=== PATIENT | female | born 1945 | race Caucasian/White ===

== ENCOUNTER → 2016-06-12 | Outpatient (CLI) | payer MEDICARE ==
[~2016-06-12] MED LIST: ARMO90TA PO; BETAFOOD PO; CALC100T2 PO; CARV12.52 PO; CATALYN PO; CATAPLEX D PO; CEPH500C3 PO; CHLOROPHYLL PO; CONGAPLEX PO; DICL75 PO; HYDR-3533 PO; IMMUPLEX PO; METO50TA PO; THYMEX PO; THYROID MED PO; TRIA50 PO; Vit D3 PO; WALKER STANDARD; WHEEMIS3 XX; [UNRECOGNIZED DRUG - CODE] PO; [UNRECOGNIZED DRUG - MIXTURE] PO; [UNRECOGNIZED DRUG - OTHER] PO; [UNRECOGNIZED DRUG - OTHER] PO; [UNRECOGNIZED DRUG - OTHER] PO; [UNRECOGNIZED DRUG - OTHER] PO; [UNRECOGNIZED DRUG - OTHER] PO; [UNRECOGNIZED DRUG - OTHER] PO
--- NOTE | 2016-06-12 15:07 | RADRPT ---
EXAM DATE/TIME: 06/12/2016 14:54 [facility] COMPARISON: No previous studies available for comparison. INDICATIONS : Evaluate for possible right lung biopsy. HISTORY OF PRESENT ILLNESS: Patient had a prior CT from [facility] on 06-05-16. This demonstrates a right lower lobe cav itary mass. A smaller mass is seen in the right lower lobe. Lesion is also noted within the liver lik saida representing a cyst. CONCLUSION: 1. Right lower lobe mass. Recommend PET/CT scan to demonstrate areas of uptake within the mass for bi opsy planning as there is a large cavitary component. This will help to get adequate tissue during sa mpling. 2. The lesion in the liver is likely related to a hepatic cyst. PET/CT will also confirm. Byron Mckenzie MD on June 12, 2016 at 15:01 Board Certified Radiologist. This report was verified electronically.
== END ==
LOC: HRAD 14:52
PROVIDERS: ATTEND Family Medicine
DX: R91.8 Other nonspecific abnormal finding of lung field (principal)

== ENCOUNTER 2016-07-02 07:02 | Day surgery (SDC) | payer MEDICARE ==
[2016-07-02] VITALS (7 sets, daily range): BP systolic 115–138; BP diastolic 61–72; PULSE 57–80; RESP 17–20; TEMP 97.7; O2SAT 93–97
[~2016-07-02] VITALS: Ht 162.6 cm; Wt 80.5 kg
[~2016-07-02 07:02] MED LIST changes: -ARMO90TA PO; -BETAFOOD PO; -CALC100T2 PO; -CARV12.52 PO; -CATALYN PO; -CATAPLEX D PO; -CHLOROPHYLL PO; -CONGAPLEX PO; -IMMUPLEX PO; -THYMEX PO; -Vit D3 PO; -[UNRECOGNIZED DRUG - CODE] PO; -[UNRECOGNIZED DRUG - MIXTURE] PO; -[UNRECOGNIZED DRUG - OTHER] PO; -[UNRECOGNIZED DRUG - OTHER] PO; -[UNRECOGNIZED DRUG - OTHER] PO; -[UNRECOGNIZED DRUG - OTHER] PO; -[UNRECOGNIZED DRUG - OTHER] PO; -[UNRECOGNIZED DRUG - OTHER] PO
[2016-07-02] MEDS ORDERED: LIDOCAINE 1%/EPINEPHrine 1:100,000 SOLN 20 ML VIAL ONE (07:41)
[2016-07-02 08:00] LABS: AUTOMATED NEUTROPHIL # 4.8 TH/MM3 (1.8-7.7); BASOPHIL # 0.1 TH/MM3 (0-0.2); BASOPHIL % 1.2 % (0.0-2.0); EOSINOPHIL # 0.4 TH/MM3 (0-0.4); EOSINOPHIL % 5.5 % (0.0-4.0); HEMATOCRIT 41.6 % (35.0-46.0); HEMO FLAGS DIFF FINAL; LYMPH % 12.6 % (9.0-44.0); LYMPHOCYTE # 0.9 TH/MM3 (1.0-4.8); MEAN CORPUSCULAR HGB CONC 33.8 % (32.0-36.0); NEUT % 69.7 % (16.0-70.0); PLATELET COUNT 243 TH/MM3 (150-450); RED BLOOD COUNT 4.68 MIL/MM3 (4.00-5.30); RED CELL DISTRIBUTION WIDTH 12.9 % (11.6-17.2); WHITE BLOOD COUNT 6.9 TH/MM3 (4.0-11.0)
[2016-07-02] MEDS ORDERED: SODIUM CHLORIDE FLUSH PRN IVF (08:00)
[2016-07-02] MEDS ORDERED: SODIUM CHLOR 0.9% 1000 ML INJ 1,000 ML IV SCH (08:00)
[2016-07-02] MEDS ORDERED: [UNRECOGNIZED DRUG - OTHER] PO (08:05)
[2016-07-02] MEDS ORDERED: CHLOROPHYLL PO (08:05)
[2016-07-02] MEDS ORDERED: [UNRECOGNIZED DRUG - OTHER] PO (08:05)
[2016-07-02] MEDS ORDERED: ARMO90TA PO (08:05)
[2016-07-02] MEDS ORDERED: [UNRECOGNIZED DRUG - OTHER] PO (08:05)
[2016-07-02] MEDS ORDERED: CATAPLEX D PO (08:05)
[2016-07-02] MEDS ORDERED: [UNRECOGNIZED DRUG - CODE] PO (08:05)
[2016-07-02] MEDS ORDERED: [UNRECOGNIZED DRUG - OTHER] PO (08:05)
[2016-07-02] MEDS ORDERED: IMMUPLEX PO (08:05)
[2016-07-02] MEDS ORDERED: Vit D3 PO (08:05)
[2016-07-02] MEDS ORDERED: THYMEX PO (08:05)
[2016-07-02] MEDS ORDERED: [UNRECOGNIZED DRUG - OTHER] PO (08:05)
[2016-07-02] MEDS ORDERED: CARV12.52 PO (08:05)
[2016-07-02] MEDS ORDERED: BETAFOOD PO (08:05)
[2016-07-02] MEDS ORDERED: CONGAPLEX PO (08:05)
[2016-07-02] MEDS ORDERED: [UNRECOGNIZED DRUG - MIXTURE] PO (08:05)
[2016-07-02] MEDS ORDERED: CALC100T2 PO (08:05)
[2016-07-02] MEDS ORDERED: CATALYN PO (08:05)
[2016-07-02] MEDS ORDERED: [UNRECOGNIZED DRUG - OTHER] PO (08:05)
[2016-07-02 08:11] LABS: APTT (PATIENT) 26.6 SEC (24.3-30.1)
[2016-07-02] MEDS ORDERED: fentaNYL CITRATE 250 MCG/5 ML AMP ONE (08:43)
[2016-07-02] MEDS ORDERED: MIDAZOLAM HCL 5 MG/5 ML VIAL ONE (08:43)
[2016-07-02] MEDS ORDERED: SODIUM CHLORIDE FLUSH BID IVF SCH (09:00)
--- NOTE | 2016-07-02 12:04 | RADRPT ---
EXAM DATE/TIME: 07/02/2016 08:57 [facility] COMPARISON: No previous studies available for comparison. INDICATIONS : Left iliac wing mass. SEDATION TIME: 30 minutes BIOPSY SITE: Left iliac wing MEDICATION(S): 1.) 4 mg midazolam (Versed) IV 2.) 200 mcg fentanyl (Sublimaze) IV DEVICE(S): 1.) 11 gauge Bone biopsy needle 2.) 11 gauge Bone marrow biopsy needle MEDICAL HISTORY : Carcinoma, lung. Hypothyroidism. SURGICAL HISTORY : None. ENCOUNTER: Initial ACUITY: 1 day PAIN SCORE: 0/10 LOCATION: Left iliac wing A total of three core specimen(s) were obtained and sent to the laboratory for pathologic evaluation. PROCEDURE: 1. CT guided iliac wing biopsy. Prior to the procedure informed consent was obtained. Any appropriate prior imaging studies were rev iewed. The site was prepped in a sterile fashion. Full sterile technique was used, including cap, mask, bridger rile gloves and gown and a large sterile sheet. Hand hygiene and 2% chlorhexidine and/or betadine/al cohol prep was utilized per protocol for cutaneous antisepsis. The skin and subcutaneous tissues wer e infiltrated with local anesthetic solution. Under CT guidance 2, 11 gauge cores of bone were obtained and submitted for pathology evaluation of t he PET positive lesion in the iliac crests. Follow-up CT scan reveals no hemorrhage. The patient tolerated the procedure well and there were no complications. The patient was returned to the Radiology Outpatient Unit in stable condition. CONCLUSION: Uncomplicated CT guided biopsy. Francis Hernandez MD FACR on July 02, 2016 at 12:01 Board Certified Radiologist. This report was verified electronically.
== END 2016-07-02 13:15 | disposition home or self-care (01) ==
LOC: HRAD 07:02 → HRIP 07:03 → HRAD 13:15
PROVIDERS: ATTEND Family Medicine
DX: M89.8X8 Other specified disorders of bone, other site (principal); C34.90 Malignant neoplasm of unspecified part of unspecified bronchus or lung; I10 Essential (primary) hypertension; E03.9 Hypothyroidism, unspecified
CPT/HCPCS: 20225; 77012; 85025; 85610; 85730; 88307; 88311; 88333; 99152; 99153; C1830; J2250; J3010; J7030; 88305

== ENCOUNTER 2016-07-16 07:04 | Day surgery (SDC) | payer MEDICARE ==
[2016-07-16] VITALS (8 sets, daily range): BP systolic 135–159; BP diastolic 68–79; PULSE 54–74; RESP 18–20; TEMP 97.3–97.7; O2SAT 94–97
[~2016-07-16] VITALS: Ht 162.6 cm; Wt 78.6 kg
[~2016-07-16 07:04] MED LIST changes: +ARMO90TA PO; +BETAFOOD PO; +CALC100T2 PO; +CARV12.52 PO; +CATALYN PO; +CATAPLEX D PO; -CEPH500C3 PO; +CHLOROPHYLL PO; +CONGAPLEX PO; -DICL75 PO; -HYDR-3533 PO; +IMMUPLEX PO; -METO50TA PO; +THYMEX PO; -THYROID MED PO; -TRIA50 PO; +Vit D3 PO; -WALKER STANDARD; -WHEEMIS3 XX; +[UNRECOGNIZED DRUG - CODE] PO; +[UNRECOGNIZED DRUG - MIXTURE] PO; +[UNRECOGNIZED DRUG - OTHER] PO; +[UNRECOGNIZED DRUG - OTHER] PO; +[UNRECOGNIZED DRUG - OTHER] PO; +[UNRECOGNIZED DRUG - OTHER] PO; +[UNRECOGNIZED DRUG - OTHER] PO; +[UNRECOGNIZED DRUG - OTHER] PO
[2016-07-16] MEDS ORDERED: SODIUM CHLOR 0.9% 1000 ML INJ 1,000 ML IV SCH (08:00)
[2016-07-16] MEDS ORDERED: LIDOCAINE 1%/EPINEPHrine 1:100,000 SOLN 20 ML VIAL ONE (08:07)
[2016-07-16] MEDS ORDERED: fentaNYL CITRATE 250 MCG/5 ML AMP ONE (08:31)
[2016-07-16] MEDS ORDERED: MIDAZOLAM HCL 5 MG/5 ML VIAL ONE (08:31)
--- NOTE | 2016-07-16 10:07 | RADRPT ---
EXAM DATE/TIME: 07/16/2016 08:39 [facility] COMPARISON: No previous studies available for comparison. INDICATIONS : Right lung mass. SEDATION TIME: 30 minutes BIOPSY SITE: Right lung. MEDICATION(S): 1.) 2 mg midazolam (Versed) IV 2.) 100 mcg fentanyl (Sublimaze) IV DEVICE(S): 1.) 18 gauge Lemus blunt needle 2.) 20 gauge Temno core biopsy needle MEDICAL HISTORY : Hypothyroidism. Hypertension. Hyperlipidemia. SURGICAL HISTORY : None. ENCOUNTER: Initial ACUITY: 1 day PAIN SCORE: 0/10 LOCATION: chest A total of three core specimen(s) were obtained and sent to the laboratory for pathologic evaluation. PROCEDURE: 1. CT guided lung biopsy. 2. Conscious sedation with continuous EKG and oximetry monitoring. 3. EKG and oximetry remained stable throughout the procedure. Prior to the procedure informed consent was obtained. Any appropriate prior imaging studies were rev iewed. The site was prepped in a sterile fashion. Full sterile technique was used, including cap, mask, bridger rile gloves and gown and a large sterile sheet. Hand hygiene and 2% chlorhexidine and/or betadine/al cohol prep was utilized per protocol for cutaneous antisepsis. The skin and subcutaneous tissues wer e infiltrated with local anesthetic solution. With CT guidance the previously identified target was localized. Biopsy was performed using the presc ribed needle as above. Adequate hemostasis was obtained with compression at the puncture site. Follow-up CT scan reveals no pneumothorax. Conscious sedation was performed with the prescribed dosages and duration as above. The patient rosana ated the procedure well and there were no complications. EKG and oximetry remained stable throughout the procedure. The patient was sent to Radiology Outpatient Unit in stable condition. CONCLUSION: Uncomplicated CT guided biopsy. Preliminary pathology is positive for malignancy. Francis Hernandez MD FACR on July 16, 2016 at 10:05 Board Certified Radiologist. This report was verified electronically.
--- NOTE | 2016-07-16 11:33 | RADRPT ---
EXAM DATE/TIME: 07/16/2016 11:15 [facility] COMPARISON: No previous studies available for comparison. INDICATIONS : Post right side biopsy. MEDICAL HISTORY : None. SURGICAL HISTORY : None. ENCOUNTER: Initial ACUITY: 1 day PAIN SCORE: 0/10 LOCATION: Bilateral chest FINDINGS: A single frontal expiratory view of the chest was performed. The lungs are symmetrically aerated and clear. No evidence of pneumothorax. Mediastinal structures are in the midline. The cardio-mediastinal contours and bronchopulmonary markings are unremarkable for an expiratory exam . Osseous structures are intact. CONCLUSION: Mass remains in the right lung, negative for pneumothorax. Francis Hernandez MD FACR on July 16, 2016 at 11:31 Board Certified Radiologist. This report was verified electronically.
== END 2016-07-16 13:22 | disposition home or self-care (01) ==
LOC: HRAD 07:04 → HRIP 07:05 → HRAD 13:22
PROVIDERS: ATTEND Family Medicine
DX: R91.8 Other nonspecific abnormal finding of lung field (principal); I10 Essential (primary) hypertension; E03.9 Hypothyroidism, unspecified; E78.5 Hyperlipidemia, unspecified
CPT/HCPCS: 32405; 71010; 77012; 81275; 81276; 88305; 88333; 88341; 88342; 88360; J2250; J3010; J7030; 88377